=== PATIENT | male | born 1955 | race Caucasian/White ===

== ENCOUNTER → 2016-06-24 | Outpatient (CLI) | payer MEDICAID ==
[2016-06-24 07:28] LABS: CH 32.4; HCT 44.8 % (39.0-53.0); HDW 2.84; HGB 15.4 gm/dL (13.0-17.5); MCHC 34.4 g/dL (31.0-37.0); MCV 92.9 fL (80.0-100.0); Mean Platelet Volume 6.8; RBC 4.83 m/uL (4.30-5.90); RDW 13.3 % (11.5-15.5); WBC 6.7 k/uL (3.8-10.6)
[2016-06-24 07:41] LABS: Appearance,Urine Clear (Clear); Bilirubin,Urine Negative (Negative); Glucose,Urine (UA) Negative (Negative); Ketones,Urine Negative (Negative); Leukocyte Esterase,Urine Negative (Negative); Nitrite,Urine Negative (Negative); PH, Urine 5.5 (5.0-8.0); Protein,Urine Trace (Negative); Specific Gravity,Urine 1.026 (1.001-1.035); UA Billing (MACRO vs. MICRO) CHEM
[2016-06-24 08:09] LABS: Hemoglobin A1C 5.5 % (4.2-6.1)
[2016-06-24 13:41] LABS: ALT 67 U/L (21-72); AST 49 U/L (17-59); Alkaline Phosphatase 61 U/L (38-126); Anion Gap 10 mmol/L; Blood Urea Nitrogen 15 mg/dL (9-20); Calcium 9.5 mg/dL (8.4-10.2); Carbon Dioxide 31 mmol/L (22-30); Chloride 104 mmol/L (98-107); Cholesterol 188 mg/dL (<200); Glucose 98 mg/dL (74-99); HDL Cholesterol 49 mg/dL (40-60); Non-African American GFR(MDRD) >60 (>60 ml/min/1.73 sqM); Potassium 4.6 mmol/L (3.5-5.1); Sodium 145 mmol/L (137-145); Total Bilirubin 2.8 mg/dL (0.2-1.3); Total Protein 7.4 g/dL (6.3-8.2); Triglycerides 71 mg/dL (<150)
[2016-06-24 14:14] LABS: Prostate Specific Antigen 1.74 ng/mL (0.00-4.00)
== END | disposition home or self-care (01) ==
LOC: LABWHC1 06:30
PROVIDERS: ATTEND Internal Medicine
DX: E78.2 Mixed hyperlipidemia (principal); M54.5 Low back pain; M19.90 Unspecified osteoarthritis, unspecified site; K21.0 Gastro-esophageal reflux disease with esophagitis; N40.0 Benign prostatic hyperplasia without lower urinary tract symptoms; R35.0 Frequency of micturition; R73.9 Hyperglycemia, unspecified
CPT/HCPCS: 36415; 80053; 80061; 81003; 82272; 83036; 84153; 84439; 84443; 85027

== ENCOUNTER → 2017-08-22 | Outpatient (CLI) | payer MEDICAID ==
--- NOTE | 2017-08-22 08:25 | XR ---
EXAMINATION TYPE: XR chest 2V DATE OF EXAM: 08/22/2017 COMPARISON: To 916 HISTORY: Chest pain TECHNIQUE: Frontal and lateral views of the chest are obtained. FINDINGS: There is no focal air space opacity. No evidence for pneumothorax. No pleural effusion. The cardiac silhouette size is within normal limits. The osseous structures are grossly intact. IMPRESSION: 1. No acute cardiopulmonary process.
[2017-08-22 08:48] LABS: HCT 44.1 % (39.0-53.0); HGB 15.4 gm/dL (13.0-17.5); MCH 31.7 pg (25.0-35.0); MCHC 34.8 g/dL (31.0-37.0); MCV 91.2 fL (80.0-100.0); Mean Platelet Volume 7.5; Platelet Count 273 k/uL (150-450); RBC 4.84 m/uL (4.30-5.90); WBC 7.4 k/uL (3.8-10.6)
[2017-08-22 09:55] LABS: ALT 43 U/L (21-72); AST 41 U/L (17-59); Albumin 4.2 g/dL (3.5-5.0); Alkaline Phosphatase 51 U/L (38-126); Anion Gap 11 mmol/L; Blood Urea Nitrogen 16 mg/dL (9-20); Calcium 9.3 mg/dL (8.4-10.2); Carbon Dioxide 28 mmol/L (22-30); Chloride 105 mmol/L (98-107); Cholesterol 184 mg/dL (<200); Glucose 101 mg/dL (74-99); HDL Cholesterol 46 mg/dL (40-60); LDL Cholesterol,Calculated 122 mg/dL (0-99); Potassium 4.6 mmol/L (3.5-5.1); Sodium 144 mmol/L (137-145); Total Bilirubin 2.1 mg/dL (0.2-1.3); Total Protein 7.3 g/dL (6.3-8.2); Triglycerides 82 mg/dL (<150)
[2017-08-22 10:11] LABS: T4, Free (Free Thyroxine) 0.95 ng/dL (0.78-2.19)
== END | disposition home or self-care (01) ==
LOC: LABWHC1 08:00
PROVIDERS: ATTEND Internal Medicine
DX: Z00.00 Encounter for general adult medical examination without abnormal findings (principal); E78.2 Mixed hyperlipidemia; M19.90 Unspecified osteoarthritis, unspecified site; K21.0 Gastro-esophageal reflux disease with esophagitis; N40.0 Benign prostatic hyperplasia without lower urinary tract symptoms; R05 Cough
CPT/HCPCS: 36415; 71046; 80053; 80061; 84153; 84439; 84443; 85027

== ENCOUNTER → 2020-06-28 | Outpatient (CLI) | payer MEDICAID ==
--- NOTE | 2020-06-28 16:12 | US ---
EXAMINATION TYPE: US carotid duplex BILAT DATE OF EXAM: 06/28/2020 COMPARISON: NONE CLINICAL HISTORY: 64-year-old male F03.91 Dementia w/behavioral disturbance. TECHNIQUE: Carotid duplex ultrasound examination. Indirect Doppler criteria was utilized. FINDINGS: EXAM MEASUREMENTS: RIGHT: Peak Systolic Velocity (PSV) cm/sec ----- Right CCA: 89.7 ----- Right ICA: 101.8 ----- Right ECA: 148.0 ICA/CCA ratio: 1.1 RIGHT: End Diastole cm/sec ----- Right CCA: 20.4 ----- Right ICA: 34.7 ----- Right ECA: 20.4 LEFT: Peak Systolic Velocity (PSV) cm/sec ----- Left CCA: 98.7 ----- Left ICA: 71.8 ----- Left ECA: 93.6 ICA/CCA ratio: 0.7 LEFT: End Diastole cm/sec ----- Left CCA: 22.4 ----- Left ICA: 26.4 ----- Left ECA: 14.6 VERTEBRALS (direction of flow): Right Vertebral: Antegrade Left Vertebral: Antegrade Rhythm: Normal Tuber Machine Cutter notes: Mild homogeneous plaque with no stenosis seen. IMPRESSION: No hemodynamically significant internal carotid artery stenosis on either side. Criteria for Assigning % of Stenosis / Diameter reduction (Estimation based on the indirect measurements of the internal carotid artery velocities (ICA PSV). 1. Normal (no stenosis)=ICA PSV < 125 cm/s: ratio < 2.0: ICA EDV<40 cm/s. 2. Less than 50% stenosis=ICA PSV < 125 cm/s: ratio < 2.0: ICA EDV<40 cm/s. 3. 50 to 69% stenosis=ICA PSV of 125 to 230 cm/s: ration 2.0 ? 4.0: ICA EDV 40-100 cm/s. 4. Greater than 70% stenosis to near occlusion= ICA PSV > 230 cm/s: ratio > 4.0: ICA EDV > 100 cm/s. 5. Near occlusion= ICA PSV velocities may be low or undetectable: variable ratio and ICA EDV. 6. Total occlusion=unable to detect flow.
== END | disposition home or self-care (01) ==
LOC: RADUSWWP 15:32
PROVIDERS: ATTEND Family Medicine
DX: F03.91 Unspecified dementia, unspecified severity, with behavioral disturbance (principal); Z87.898 Personal history of other specified conditions
CPT/HCPCS: 93880

== ENCOUNTER → 2020-07-09 | Outpatient (CLI) | payer MEDICAID ==
--- NOTE | 2020-07-10 05:36 | CT ---
EXAMINATION TYPE: CT brain w con DATE OF EXAM: 07/09/2020 COMPARISON: None. HISTORY: memory loss CT DLP: 978.2 mGycm Automated exposure control for dose reduction was used. CONTRAST: CT scan of the head is performed with IV Contrast, patient injected with 100 mL of Isovue 300. FINDINGS: There is no abnormal enhancing mass or midline shift identified. The ventricles and sulci are within normal limits in size for patient's age. Donaldson-white matter differentiation fairly well maintained. The globes are intact and the visualized sinuses are clear. IMPRESSION: Unremarkable study.
== END | disposition home or self-care (01) ==
LOC: RADCTMAIN 17:39
PROVIDERS: ATTEND Family Medicine
DX: R41.3 Other amnesia (principal)
CPT/HCPCS: 70460; Q9967

== ENCOUNTER → 2021-03-18 | Outpatient (CLI) | payer MEDICAID ==
--- NOTE | 2021-03-18 13:07 | XR ---
EXAM TYPE: LUMBAR SPINE X RAY SERIES COMPARISON: NONE HISTORY: Pain TECHNIQUE: 4 views are submitted. FINDINGS: Alignment is anatomic. The pedicles are intact. The transverse processes are intact. There is hype rtrophic and degenerative change of the spine. There is facet arthropathy. IMPRESSION: 1. Multilevel degenerative disc disease with hypertrophic arthropathy and foraminal encroachment susp ected at levels L3-S1. Correlate clinically.
== END | disposition home or self-care (01) ==
LOC: RADXRMAIN 12:50
PROVIDERS: ATTEND Nurse Practitioner Family
DX: M51.16 Intervertebral disc disorders with radiculopathy, lumbar region (principal)
CPT/HCPCS: 72100

== ENCOUNTER → 2023-07-06 | Outpatient (CLI) | payer MEDICARE ==
[2023-07-06 20:06] LABS: Basophils # (A) 0.03 X 10*3/uL (0.00-0.10); Basophils % (A) 0.4 %; Eosinophils # (A) 0.07 X 10*3/uL (0.04-0.35); Eosinophils % (A) 0.9 %; HGB 13.7 g/dL (13.0-17.0); Lymphocytes # (A) 2.49 X 10*3/uL (0.90-5.00); Lymphocytes % (A) 30.6 %; MCH 30.6 pg (27.0-32.0); MCHC 34.3 g/dL (32.0-37.0); MCV 89.5 FL (80.0-97.0); Mean Platelet Volume 9.9 FL (9.5-12.2); Monocytes # (A) 0.64 X 10*3/uL (0.20-1.00); Monocytes % (A) 7.9 %; NRBC Per 100 WBC 0 X 10*3/uL (0.00-0.01); Neutrophils # (A) 4.88 X 10*3/uL (1.80-7.70); Platelet Count 317 X 10*3/uL (140-440); RBC 4.47 X 10*6/uL (4.40-5.60); RDW 12.9 % (11.5-14.5); WBC 8.13 X 10*3/uL (4.50-10.00)
[2023-07-06 21:26] LABS: Potassium 3.6 mmol/L (3.5-5.5)
== END | disposition home or self-care (01) ==
LOC: LABPAT 14:09
PROVIDERS: ATTEND Surgery
DX: Z01.818 Encounter for other preprocedural examination (principal); N32.1 Vesicointestinal fistula; R00.1 Bradycardia, unspecified
CPT/HCPCS: 80051; 85025; 93005

== ENCOUNTER 2023-07-16 09:22 | Day surgery (SDC) | payer MEDICARE ==
[2023-07-16] MEDS: LACTATED RINGERS 1,000 ML IV SCH (10:27)
[2023-07-16] MEDS ORDERED: PROPOFOL 10 MG/ML 20 ML VIAL IV ONE (10:41)
[2023-07-16] MEDS ORDERED: LIDOCAINE 1% INJ 10MG/ML (20 ML MDV) ONE (10:41)
--- NOTE | 2023-07-16 10:55 | P.OP ---
Date of Procedure: 07/16/23 Preoperative Diagnosis: colovesical fistula Diverticulitis Postoperative Diagnosis: colovesical fistula Diverticulosis Procedure(s) Performed: colonoscopy Anesthesia: MAC Surgeon: Darinel Richard Pathology: none sent Condition: stable Disposition: PACU Description of Procedure: the patient's placed on the endoscopy table in the lateral position. He received IV sedation. The digital rectal exam was performed which revealed no abnormalities. The flexible colonoscope was then placed the patient's anus and passed throughout the entire colon. The ileocecal valve was visualized. The cecum appeared normal. The ascending colon appeared normal. The transverse colon appeared normal. In the descending and sigmoid colon there is extensive diverticular changes. There appeared to be some evidence of scarring of the sigmoid colon. Scope was then brought back the rectum and this appeared normal. Scope was withdrawn for patient.
[2023-07-16 10:58] VITALS: TEMP 97.5
[2023-07-16 11:43] VITALS: BP 142/81; PULSE 51; RESP 18
== END 2023-07-16 11:45 | disposition home or self-care (01) ==
LOC: ORWHC2ENDO 09:22
PROVIDERS: ATTEND Surgery
DX: N32.1 Vesicointestinal fistula (principal); K57.30 Diverticulosis of large intestine without perforation or abscess without bleeding; E78.5 Hyperlipidemia, unspecified; Z79.899 Other long term (current) drug therapy
CPT/HCPCS: 45378; J2001; J2704

== ENCOUNTER 2023-07-17 06:11 | Inpatient (IN) | payer MEDICARE ==
[2023-07-16 09:26] VITALS: BMI 30.7
[2023-07-17] MEDS ORDERED: HYDROmorphone 0.5 MG/0.5 ML SYRINGE IVP PRN (07:00)
[2023-07-17] MEDS: LACTATED RINGERS 1,000 ML IV SCH (07:25)
[2023-07-17] MEDS: LIDOCAINE 1% (10MG/ML) FOR IV START INTRADERMA PRN (07:25)
[2023-07-17] MEDS: ACETAMINOPHEN TAB 500 MG TAB PO PRN (07:31)
[2023-07-17] MEDS: DEXAMETHASONE SOD PHOSPHATE 4 MG/ML 1 ML VIAL IV ONE (07:32)
[2023-07-17] MEDS: ONDANSETRON 4 MG/2 ML VIAL IVP ONE (07:33)
[2023-07-17] MEDS: MIDAZOLAM 2 MG/2 ML VIAL IV PRN (08:02)
[2023-07-17] MEDS ORDERED: ePHEDrine 50 MG/ML 1 ML VIAL ONE (08:26)
[2023-07-17] MEDS ORDERED: LIDOCAINE 1% INJ 10MG/ML (20 ML MDV) ONE (08:26)
[2023-07-17] MEDS ORDERED: fentaNYL (PF) 50 MCG/ML 2 ML AMP ONE (08:26)
[2023-07-17] MEDS ORDERED: WATER FOR INJECTION, STERILE 10 ML VIAL IV ONE (08:26)
[2023-07-17] MEDS ORDERED: SUCCINYLCHOLINE CHLORIDE 200 MG/10 ML VIAL IV ONE (08:26)
[2023-07-17] MEDS ORDERED: SUGAMMADEX SODIUM 200 MG/2 ML SDV IV ONE (08:26)
[2023-07-17] MEDS ORDERED: PHENYLEPHRINE 10 MG/ML VIAL ONE (08:26)
[2023-07-17] MEDS ORDERED: HEPARIN SODIUM,PORCINE 5,000 UNIT/ML 1 ML VIAL ONE (08:26)
[2023-07-17] MEDS ORDERED: ROCURONIUM 10 MG/ML (5 ML VIAL) IV ONE (08:26)
[2023-07-17] MEDS ORDERED: PROPOFOL 10 MG/ML 20 ML VIAL IV ONE (08:26)
[2023-07-17] MEDS: metroNIDAZOLE-NS PMX 500 MG in SALINE 1 100ML.BAG IVPB PRN (08:50)
--- NOTE | 2023-07-17 09:22 | P.ANPRN ---
Procedure Note - Anesthesia - Epidural/Spinal Epidural Continuous Time Out Performed: Yes Date of Procedure: 07/17/23 Procedure Start Time: 08:04 Procedure Stop Time: 08:20 Location of Patient: PreOp Indication: Acute Post-Operative Pain, Requested by Surgeon Sedation Type: Sedate with meaningful contact maintained Preparation: Sterile Dressing Position: Sitting Catheter: Indwelling Needle Guage: 18 Injectate: lidocaine 1% w/ epi 5 ml Narrative: T10 level prepped and draped. 1% lidocaine 3 ml for local. 18 G Touhey to JAQUELINE to NaCl. Catheter to 14 cm. Negative aspiration. Negative test dose. Patient tolerated well Blood Aspirated: No Pain Paresthesia on Injection Noted: No Events: Uneventful and Well Tolerated
[2023-07-17] MEDS ORDERED: NALOXONE 0.4 MG/ML 1 ML VIAL IV PRN (09:23)
[2023-07-17] MEDS ORDERED: NALBUPHINE 10 MG/ML (10 ML MDV) IV PRN (09:23)
[2023-07-17] MEDS: LACTATED RINGERS 1,000 ML IV ONE ×2 (09:33→12:59)
[2023-07-17] MEDS: HEPARIN SODIUM,PORCINE 5,000 UNIT/ML 1 ML VIAL SQ PRN (10:03)
[2023-07-17] MEDS ORDERED: METOCLOPRAMIDE 5 MG/ML 2 ML VIAL IVP PRN (10:51)
[2023-07-17] MEDS ORDERED: BENZOCAINE/MENTHOL LOZENG 1 EACH LOZENGE MUCOUS MEM PRN (10:51)
--- NOTE | 2023-07-17 10:51 | P.OP ---
Date of Procedure: 07/17/23 Preoperative Diagnosis: diverticulitis with colovesical fistula Postoperative Diagnosis: severe diverticulitis with colovesical fistula Procedure(s) Performed: sigmoid colectomy with low anterior section Takedown of splenic flexure Repair of colovesical fistula Anesthesia: ANDREW Surgeon: Darinel Richard Estimated Blood Loss (ml): 100 Pathology: other (sigmoid colon) Condition: stable Disposition: PACU Description of Procedure: the patient's placed on the operating table in the supine position. He received general endotracheal tube anesthesia. His abdomen was prepped and draped in usual sterile fashion. The patient placed in dorsal 5 position. A low midline skin incision was made then using left cautery the subcutaneous tissue divided. And the abdominal wall was divided in the midline position. The Bookwalter retractors placed in the wound. And then the abdomen was explored. There was obvious severe diverticulitis of the sigmoid colon. The colon appeared to be chronically scarred and inflamed. It was adherent to the left lateral area of the bladder. This point the incision was extended cephalad. And then the left colon and splenic flexure were mobilized. He sigmoid colon was adherent to the bladder this was bluntly dissected with finger dissection. Using electrocautery the bladder was further dissected off the lateral pelvic wall. The bladder was dissected off the;. The colovesical fistula could be seen. It was approximately 7 mm in size. The bladder was repaired using 3-0 chromic suture. At this point the rectum was freed. The rectum was then transected with the contour stapler. Next. The suitable spot on the left colon was found. And then a enterotomy is made just distally to this. The anvil for the 29 mm EEA stapler is placed into the colon. The colon was then transected with the JOSY stapler. And then the anvil spike was driven through the staple line. The enterotomy was closed with 3-0 GI silk suture. This was in the specimen side. The mesentery the bowel was divided with the LigaSure device. The specimen sent to pathology. Due to the significant inflammatory changes in the left pelvis. The ureter could not be identified 100%. There appeared to be no evidence of any transection of ureter during the dissection. At this point the dietetic assistant placed the anal dilators in the anus. And then the 29 mm EEA stapler was placed into the anus. The spike was driven through the rectal staple line. The anvil was cut to stable. The stapler is then closed and fired. 2 intact donut tissue rings were removed from the stapler. Using a bowel clamp the proximal bowel was occluded and then using the rigid sigmoidoscope the rectum was insufflated with air. There is no evidence of any leakage of air at the staple line. His was tested under water. There is enough air placed in the rectum where the air escaped around the anus. At this point the abdomen was irrigated there is no bleeding seen. A drain was placed in the pelvis. This was brought through the right abdominal wall. The fascia was then closed in looped #1 PDS suture. Skin was closed neal.Prevena Closed skin neal. Patient was sent to recovery room stable condition.
[2023-07-17] MEDS: ROPIVACAINE 400 MG, HYDROMORPHONE (PF) 5 MG in SODIUM CHLORIDE 0.9% 170 ML EPIDURAL PRN (11:57)
[2023-07-17] MEDS: D5-0.45% NACL WITH KCL 20MEQ/L 1,000 ML IV SCH (14:23)
[2023-07-17 14:39] LABS: Glucose,Whole Blood 162 mg/dL (70-110)
[2023-07-17 15:54] LABS: African American GFR (CKD) >90 (>60 ml/min/1.73 sqM); Anion Gap 5 mmol/L; Blood Urea Nitrogen 9 mg/dL (9-20); Calcium 8.3 mg/dL (8.4-10.2); Carbon Dioxide 28 mmol/L (22-30); Chloride 105 mmol/L (98-107); Glucose 203 mg/dL (74-99); Non-African American GFR(CKD) >90 (>60 ml/min/1.73 sqM); Potassium 3.4 mmol/L (3.5-5.1); Sodium 138 mmol/L (137-145)
[2023-07-17 16:08] LABS: Basophils % (A) 0 %; Eosinophils % (A) 0 %; HCT 42.3 % (39.0-53.0); Lymphocytes # (A) 0.6 k/uL (1.0-4.8); Lymphocytes % (A) 4 %; MCH 31.2 pg (25.0-35.0); MCHC 33.1 g/dL (31.0-37.0); MCV 94.2 fL (80.0-100.0); Mean Platelet Volume 8.1; Monocytes % (A) 7 %; Neutrophils # (A) 12.5 k/uL (1.3-7.7); Neutrophils % (A) 88 %; Platelet Count 278 k/uL (150-450); RBC 4.49 m/uL (4.30-5.90); WBC 14.2 k/uL (3.8-10.6)
[2023-07-17] MEDS: HEPARIN SODIUM,PORCINE 5,000 UNIT/ML 1 ML VIAL SQ SCH (17:09)
[2023-07-17] MEDS: FAMOTIDINE 20 MG/2 ML VIAL IV SCH (22:43)
[2023-07-17] MEDS: ALVIMOPAN 12 MG CAPSULE PO SCH (22:57)
[2023-07-17] MEDS: DONEPEZIL 10 MG TAB PO SCH (22:57)
[2023-07-17] MEDS: MEMANTINE 10 MG TAB PO SCH (22:57)
[2023-07-18] MEDS: ONDANSETRON 4 MG/2 ML VIAL IVP PRN (09:41)
--- NOTE | 2023-07-18 10:47 | P.GSCN ---
History of Present Illness Consult date: 07/18/23 History of present illness: 67 yo male with diverticultis and a colovesical fistula underwent a sigmoid colectomy yesterday by Dr Richard. Dr Flores was asked to see as he diagnosed the fistual because of chronic utis and an abnormal cysto consistent with a cv fistual THe patient has an indwelling catheter in place.The patient can give no other history Review of Systems ROS unobtainable: due to mental status - EENT Eyes: denies blurred vision Ears, nose, mouth and throat: Denies dysphagia - Cardiovascular Denies chest pain, Denies shortness of breath - Respiratory Denies cough, Denies 7 - Gastrointestinal Reports as per HPI - Genitourinary Denies dysuria, Denies hematuria - Integumentary Denies rash, Denies unusual bruising - Neurological Denies headaches, Denies syncope - Hematologic/Lymphatic Denies easy bleeding, Denies easy bruising Past Medical History Past Medical History: Hyperlipidemia Additional Past Medical History / Comment(s): "takes memory pills" - pt. states memory problems History of Any Multi-Drug Resistant Organisms: None Reported Past Surgical History: Unable to Obtain Additional Past Surgical History / Comment(s): Pt. doesn't think he's had surgery before. Past Anesthesia/Blood Transfusion Reactions: Unable to Obtain Additional Past Anesthesia/Blood Transfusion Reaction / Comm: pt. doesn't think he has had surgery Past Psychological History: No Psychological Hx Reported Smoking Status: Former smoker Past Alcohol Use History: None Reported Additional Past Alcohol Use History / Comment(s): quit smoking 20yrs. ago, smoked "socially". quit drinking approx. 20 yrs. ago when he "ended up in [facility] for [facility]" Past Drug Use History: None Reported Medications and Allergies Home Medications Medication Instructions Recorded Confirmed Type Atorvastatin [Lipitor] 20 mg PO QAM 07/15/23 07/17/23 History Donepezil [Aricept] 2 tab PO HS 07/15/23 07/17/23 History Memantine [Namenda] 10 mg PO BID 07/15/23 07/17/23 History Allergies Allergy/AdvReac Type Severity Reaction Status Date / Time No Known Allergies Allergy Verified 07/17/23 07:10 Surgical - Exam Vital Signs Temp Pulse Resp BP Pulse Ox 97.6 F 52 L 18 132/85 99 07/17/23 07:01 07/17/23 07:01 07/17/23 07:01 07/17/23 07:01 07/17/23 07:01 - General well developed, well nourished, no distress - Eyes normal ocular movement, no icteric - ENT no hearing loss, no congestion - Neck no masses, trachea midline - Respiratory normal respiratory effort, clear to auscultation - Abdomen Abdomen: soft, non tender, no guarding, no rigid, no rebound - Integumentary no rash, no abnormal pigmentation - Neurologic no disoriented, no combative, memory loss Results - Labs 07/17/23 15:03 07/17/23 15:03 Abnormal Lab Results - Last 24 Hours (Table) 07/17/23 07/17/23 07/17/23 Range/Units 14:38 15:03 15:03 WBC 14.2 H (3.8-10.6) k/uL Neutrophils # 12.5 H (1.3-7.7) k/uL Lymphocytes # 0.6 L (1.0-4.8) k/uL Potassium 3.4 L (3.5-5.1) mmol/L Glucose 203 H (74-99) mg/dL POC Glucose (mg/dL) 162 H (70-110) mg/dL Calcium 8.3 L (8.4-10.2) mg/dL Diabetes panel 07/17/23 Range/Units 15:03 Sodium 138 (137-145) mmol/L Potassium 3.4 L (3.5-5.1) mmol/L Chloride 105 (98-107) mmol/L Carbon Dioxide 28 (22-30) mmol/L BUN 9 (9-20) mg/dL Creatinine 0.72 (0.66-1.25) mg/dL Glucose 203 H (74-99) mg/dL Calcium 8.3 L (8.4-10.2) mg/dL Calcium panel 07/17/23 Range/Units 15:03 Calcium 8.3 L (8.4-10.2) mg/dL Pituitary panel 07/17/23 Range/Units 15:03 Sodium 138 (137-145) mmol/L Potassium 3.4 L (3.5-5.1) mmol/L Chloride 105 (98-107) mmol/L Carbon Dioxide 28 (22-30) mmol/L BUN 9 (9-20) mg/dL Creatinine 0.72 (0.66-1.25) mg/dL Glucose 203 H (74-99) mg/dL Calcium 8.3 L (8.4-10.2) mg/dL Adrenal panel 07/17/23 Range/Units 15:03 Sodium 138 (137-145) mmol/L Potassium 3.4 L (3.5-5.1) mmol/L Chloride 105 (98-107) mmol/L Carbon Dioxide 28 (22-30) mmol/L BUN 9 (9-20) mg/dL Creatinine 0.72 (0.66-1.25) mg/dL Glucose 203 H (74-99) mg/dL Calcium 8.3 L (8.4-10.2) mg/dL Assessment and Plan Assessment: Impression: colovesical fistual treated with a colectomy. Plan: The patients catheter should remain in place 10 day to 2 weeks . The bladder shold heal with this He can fu in our office with Dr Flores for a voiding trial
--- NOTE | 2023-07-18 11:41 | P.CONS ---
History of Present Illness - Reason for Consult Consult date: 07/18/23 Medical management of dementia - History of Present Illness Is a 67-year-old male known to the practice. He has a history of dementia and hyperlipidemia which he takes amantadine, donezepil atorvastatin for. His sister reports that he was having recurrent UTIs and then peeing brown liquid. It was found that he had a colovesiculal fistula. He underwent a sigmoid colectomy with low anterior resection [address] Richard. He was seen in the surgical floor. He is complaining of some itching at his incision site and some sweating. His sister at bedside. He has remained afebrile. Heart rate respiratory rate controlled, labs from yesterday show a slight leukocytosis of 14.2 with a left shift electrolytes are otherwise normal with exception of a potassium 3.4. Repeat labs are pending for today. The oma ent is somewhat confused but conversant and following instructions. Review of Systems All systems: negative Past Medical History Past Medical History: Hyperlipidemia Additional Past Medical History / Comment(s): "takes memory pills" - pt. states memory problems History of Any Multi-Drug Resistant Organisms: None Reported Past Surgical History: Unable to Obtain Additional Past Surgical History / Comment(s): Pt. doesn't think he's had surgery before. Past Anesthesia/Blood Transfusion Reactions: Unable to Obtain Additional Past Anesthesia/Blood Transfusion Reaction / Comm: pt. doesn't think he has had surgery Past Psychological History: No Psychological Hx Reported Smoking Status: Former smoker Past Alcohol Use History: None Reported Additional Past Alcohol Use History / Comment(s): quit smoking 20yrs. ago, smoked "socially". quit drinking approx. 20 yrs. ago when he "ended up in [facility]" Past Drug Use History: None Reported Medications and Allergies Home Medications Medication Instructions Recorded Confirmed Type Atorvastatin [Lipitor] 20 mg PO QAM 07/15/23 07/17/23 History Donepezil [Aricept] 2 tab PO HS 07/15/23 07/17/23 History Memantine [Namenda] 10 mg PO BID 07/15/23 07/17/23 History Allergies Allergy/AdvReac Type Severity Reaction Status Date / Time No Known Allergies Allergy Verified 07/17/23 07:10 Physical Exam Vitals: Vital Signs Temp Pulse Pulse Resp BP Pulse Ox 07/18/23 07:35 97.4 F L 60 17 187/97 96 07/18/23 02:40 150/72 07/18/23 02:39 98.6 F 67 20 191/94 94 L 07/17/23 20:00 55 L 07/17/23 19:40 98.6 F 55 L 20 152/83 100 07/17/23 14:45 50 L 110/68 98 07/17/23 14:15 56 L 112/68 97 07/17/23 13:55 53 L 113/69 97 07/17/23 13:40 51 L 118/51 100 07/17/23 13:25 98.2 F 43 L 14 106/61 100 07/17/23 12:30 48 L 17 107/55 97 07/17/23 12:14 45 L 17 95/55 97 07/17/23 12:00 49 L 19 92/50 97 07/17/23 11:45 48 L 16 99/58 99 Intake and Output 07/17/23 07/18/23 07/18/23 22:59 06:59 14:59 Intake Total 1000 480 Output Total 100 755 75 Balance 900 -275 -75 Intake: Intake, IV Titration 1000 Amount D5-0.45% NaCl with KCl 1000 20Meq/l 1,000 ml @ 125 mls/hr IV .Q8H [facility] Rx#: [id number] Oral 0 480 Output: Drainage 100 55 75 Abdomen 100 55 75 Urine 700 Other: Voiding Method Indwelling Catheter GENERAL: Fatigued elderly male with some ongoing sweating. HEAD: Atraumatic, normocephalic. EYES: Pupils equal round and reactive to light, extraocular movements intact, sclera anicteric, conjunctiva are normal. ENT:nares patent, oropharynx clear without exudates. Moist mucous membranes. NECK: Normal range of motion, supple without lymphadenopathy or JVD, no thyromegaly LUNGS: Breath sounds clear to auscultation bilaterally and equal. No wheezes rales or rhonchi. HEART: Regular rate and rhythm without murmurs, rubs or gallops.S1S2 Normal ABDOMEN: Wound VAC appears to be in place. Abdominal binder is in place, furthe r evaluation was deferred. Scant bowel sounds are pending at this time. EXTREMITIES: Normal range of motion, no pitting or edema. No clubbing or cyanosis. NEUROLOGICAL: Cranial nerves II through XII grossly intact. Normal speech, patient appears somewhat confused which is his baseline per sister. PSYCH: Normal mood, normal affect. SKIN: Warm, Dry, normal turgor, no rashes or lesions noted. Results CBC & Chem 7: 07/17/23 15:03 07/17/23 15:03 Labs: Abnormal Lab Results - Last 24 Hours (Table) 07/17/23 07/17/23 07/17/23 Range/Units 14:38 15:03 15:03 WBC 14.2 H (3.8-10.6) k/uL Neutrophils # 12.5 H (1.3-7.7) k/uL Lymphocytes # 0.6 L (1.0-4.8) k/uL Potassium 3.4 L (3.5-5.1) mmol/L Glucose 203 H (74-99) mg/dL POC Glucose (mg/dL) 162 H (70-110) mg/dL Calcium 8.3 L (8.4-10.2) mg/dL Assessment and Plan Plan: Colovesiclulal fistula status post partial colectomy: Postop day #1, patient is not currently on any antibiotics. He has medications for nausea and pain. He is on heparin for anticoagulation DVT prophylaxis. He has famotidine for GI prophylaxis Dementia: Remains on donezepil and amantadine. Hyperlipidemia. His Lipitor can be safely held at this time. Urology has been consulted as well, medically appears stable at this time. Will continue to follow him with you, thank you for much of his consultation, repeat labs in AM.
[2023-07-18 13:18] LABS: Glucose,Whole Blood 137 mg/dL (70-110)
[2023-07-18] MEDS: diphenhydrAMINE 50 MG/ML 1 ML VIAL IVP PRN (16:52)
--- NOTE | 2023-07-18 17:14 | P.PN ---
Subjective Progress Note Date: 07/18/23 Nursing reports that patient became agitated and ripped out his epidural including Moisés-Obrien drain. Family also confirms he is more confused. Abdomen: Incisional wound VAC without suction. Attempted reinforcement was still persistently. Psych: Patient is confused. Genitourinary: Urine is dark. No hematuria. Plan: 1. Attached incisional wound VAC to wall suction medium, continuous suction 2. Agree with Haldol per medicine to adjust for agitation. Restraints per medicine team. 3. May discontinue antiemetics for prolonged QT interval and interaction with Haldol. 4. Abdominal binder ordered. 5. Transition to nonnarcotic pain medication scheduled. I prescribed Tylenol and Toradol. 6. Keep Lema catheter in for bladder repair. Objective - Vital Signs Vital signs: Vital Signs Temp 98.3 F 07/18/23 13:55 Pulse 85 07/18/23 15:50 Resp 18 07/18/23 13:55 BP 212/113 07/18/23 15:50 Pulse Ox 94 L 07/18/23 15:50 FiO2 Intake & Output 07/17/23 07/18/23 07/18/23 18:59 06:59 18:59 Intake Total 3150 480 47 Output Total 540 795 95 Balance 2610 -315 -48 Weight 85.8 kg Intake: IV 2150 Intake, IV Titration 1000 47 Amount D5-0.45% NaCl with KCl 1000 20Meq/l 1,000 ml @ 125 mls/hr IV .Q8H [facility] Rx#: [id number] Ropivacaine 400 mg 47 Hydromorphone (Pf) 5 mg In Sodium Chloride 0.9% 170 ml @ Per Protocol EPIDURAL .Q0M PRN Rx#: [id number] Oral 0 480 Output: Drainage 140 95 95 Abdomen 140 95 95 Urine 300 700 Estimated Blood Loss 100 Other: Voiding Method Indwelling Catheter - Labs CBC & Chem 7: 07/17/23 15:03 07/17/23 15:03 Labs: Abnormal Lab Results - Last 24 Hours (Table) 07/18/23 Range/Units 13:14 POC Glucose (mg/dL) 137 H (70-110) mg/dL
[2023-07-18] MEDS: KETOROLAC 15 MG/ML 1 ML VIAL IVP SCH (17:49)
[2023-07-18] MEDS: ACETAMINOPHEN IV (For NPO) 1,000 MG in EMPTY BAG 1 BAG IVPB SCH (17:50)
[2023-07-18] MEDS: HALOPERIDOL LACTATE 5 MG/ML 1 ML VIAL IM STA (19:54)
[2023-07-19] MEDS: HALOPERIDOL LACTATE 5 MG/ML 1 ML VIAL IM PRN (02:37)
[2023-07-19 09:54] LABS: Basophils # (A) 0.03 X 10*3/uL (0.00-0.10); Basophils % (A) 0.2 %; Eosinophils # (A) 0 X 10*3/uL (0.04-0.35); Eosinophils % (A) 0 %; HCT 33.7 % (39.6-50.0); Lymphocytes % (A) 12.6 %; MCHC 35.6 g/dL (32.0-37.0); MCV 89.9 FL (80.0-97.0); Mean Platelet Volume 10.5 FL (9.5-12.2); Monocytes % (A) 7.7 %; NRBC Per 100 WBC 0 X 10*3/uL (0.00-0.01); Neutrophils # (A) 14.35 X 10*3/uL (1.80-7.70); Neutrophils % (A) 78.9 %; Platelet Count 250 X 10*3/uL (140-440); RBC 3.75 X 10*6/uL (4.40-5.60); RDW 13.2 % (11.5-14.5); WBC 18.19 X 10*3/uL (4.50-10.00)
[2023-07-19 09:56] LABS: ALT 28 U/L (10-49); AST 57 U/L (14-35); Albumin 3.4 g/dL (3.8-4.9); Albumin/Globulin Ratio 1.55 Ratio (1.60-3.17); Alkaline Phosphatase 55 U/L (41-126); BUN/Creat Ratio 14.55 Ratio (12.00-20.00); Calcium 8.6 mg/dL (8.7-10.3); Carbon Dioxide 25.9 mmol/L (21.6-31.8); Chloride 106 mmol/L (96-109); Globulin 2.2 g/dL (1.6-3.3); Glucose 86 mg/dL (70-110); Potassium 3.8 mmol/L (3.5-5.5); Sodium 142 mmol/L (135-145); Total Bilirubin 1.3 mg/dL (0.3-1.2); Total Protein 5.6 g/dL (6.2-8.2)
--- NOTE | 2023-07-19 12:11 | P.PN ---
Subjective Progress Note Date: 07/19/23 07/18/23: this is a 67-year-old male known to the practice. He has a history of dementia and hyperlipidemia which he takes amantadine, donezepil atorvastatin for. His sister reports that he was having recurrent UTIs and then peeing brown liquid. It was found that he had a colovesiculal fistula. He underwent a sigmoid colectomy with low anterior resection [address] Richard. He was seen in the surgical floor. He is complaining of some itching at his incision site and some sweating. His sister at bedside. He has remained afebrile. Heart rate respiratory rate controlled, labs from yesterday show a slight leukocytosis of 14.2 with a left shift electrolytes are otherwise normal with exception of a potassium 3.4. Repeat labs are pending for today. The patient is somewhat confused but conversant and following instructions. July 19, 2023: Patient was reevaluated today. Yesterday became aggressive and Haldol was ordered IM. His Reglan was discontinued to prevent any QT prolongat ion. This morning he has a sitter at bedside. He has known dementia and takes Aricept and Namenda. He is asleep but easily arousable at this time. Not really answering questions at this time. Show patient is afebrile, heart rates to normal once his respiratory blood pressure slightly elevated. Pulse oximetry this morning was 96% on room air. Labs show a leukocytosis now 18.19 with a hemoglobin of 12.0 with neutrophil count is 14.35 chemistries are essentially normal. EKG yesterday showed sinus rhythm with PACs Objective - Vital Signs Vital signs: Vital Signs Temp 98.7 F 07/19/23 07:12 Pulse 63 07/19/23 07:12 Resp 17 07/19/23 07:12 BP 152/85 07/19/23 07:12 Pulse Ox 96 07/19/23 07:12 FiO2 Intake & Output 07/18/23 07/19/23 07/19/23 18:59 06:59 18:59 Intake Total 397 220 Output Total 625 350 Balance -228 -130 Intake: Intake, IV Titration 397 Amount ACETAMINOPHEN IV (For NPO 100 ) 1,000 mg In Empty Bag 1 bag @ 400 mls/hr IVPB Q6HR [facility] Rx#:[id number] D5-0.45% NaCl with KCl 250 20Meq/l 1,000 ml @ 125 mls/hr IV .Q8H [facility] Rx#: [id number] Ropivacaine 400 mg 47 Hydromorphone (Pf) 5 mg In Sodium Chloride 0.9% 170 ml @ Per Protocol EPIDURAL .Q0M PRN Rx#: [id number] Oral 0 220 Output: Drainage 95 Abdomen 95 Urine 530 350 Stool 0 Other: Voiding Method Indwelling Catheter Indwelling Catheter # Bowel Movements 0 - Exam GENERAL: Asleep elderly male. Is easily arousable but seems startled. NECK: Normal range of motion, supple without lymphadenopathy or JVD, no thyromegaly LUNGS: Breath sounds clear to auscultation bilaterally and equal. No wheezes rales or rhonchi. HEART: Regular rate and rhythm without murmurs, rubs or gallops.S1S2 Normal ABDOMEN: Wound VAC appears to be in place. Abdominal binder is in place, further evaluation was deferred. Hypoactive bowel sounds are pending at this time. EXTREMITIES: Normal range of motion, no pitting or edema. No clubbing or cyanosis. NEUROLOGICAL: Cranial nerves II through XII grossly intact. No speech audible this morning. PSYCH: Normal mood, normal affect. SKIN: Warm, Dry, normal turgor, no rashes or lesions noted. - Labs CBC & Chem 7: 07/19/23 05:49 07/19/23 05:49 Labs: Abnormal Lab Results - Last 24 Hours (Table) 07/18/23 07/19/23 07/19/23 Range/Units 13:14 05:49 05:49 WBC 18.19 H (4.50-10.00) X 10*3/uL RBC 3.75 L (4.40-5.60) X 10*6/uL Hgb 12.0 L (13.0-17.0) g/dL Hct 33.7 L (39.6-50.0) % Immature Gran # 0.11 H (0.00-0.04) X 10*3/uL Neutrophils # 14.35 H (1.80-7.70) X 10*3/uL Monocytes # 1.40 H (0.20-1.00) X 10*3/uL Eosinophils # 0 L (0.04-0.35) X 10*3/uL POC Glucose (mg/dL) 137 H (70-110) mg/dL Calcium 8.6 L (8.7-10.3) mg/dL Total Bilirubin 1.3 H (0.3-1.2) mg/dL AST 57 H (14-35) U/L Total Protein 5.6 L (6.2-8.2) g/dL Albumin 3.4 L (3.8-4.9) g/dL Albumin/Globulin Ratio 1.55 L (1.60-3.17) Ratio Assessment and Plan Plan: Colovesiclulal fistula status post partial colectomy: Postop day #2, patient is not currently on any antibiotics. He has medications for nausea and pain. He is on heparin for anticoagulation DVT prophylaxis. He has famotidine for GI prophylaxis Dementia: Remains on donezepil and amantadine. Aggressive outburst: Haldol is ordered as needed. Hyperlipidemia. His Lipitor can be safely held at this time. Reactive leukocytosis: He did receive cefazolin today in the operating room. Will continue to monitor status he may need to be restarted on antibiotics. Will continue to follow with you. He will be reevaluated next 24 hours. Continue his current medications regimen.
--- NOTE | 2023-07-19 12:45 | P.PN ---
Subjective Progress Note Date: 07/19/23 patient appears to be resting comfortably in his bed. His postoperative pain has been managed. He has really no complaints. Patient has been diffuse. He's had good urinary output. However his white count has jumped. There is no obvious signs of sepsis. On exam vital signs appear stable. Abdomen is soft incision is clean dry intact. DACIA drain has serosanguineous fluid. Status post status post low anterior section with repair of colovesical fistula. Patient will be observed. We will start him on Zosyn today. Objective - Vital Signs Vital signs: Vital Signs Temp 98.7 F 07/19/23 07:12 Pulse 63 07/19/23 07:12 Resp 17 07/19/23 07:12 BP 152/85 07/19/23 07:12 Pulse Ox 96 07/19/23 07:12 FiO2 Intake & Output 07/18/23 07/19/23 07/19/23 18:59 06:59 18:59 Intake Total 397 220 Output Total 625 350 Balance -228 -130 Intake: Intake, IV Titration 397 Amount ACETAMINOPHEN IV (For NPO 100 ) 1,000 mg In Empty Bag 1 bag @ 400 mls/hr IVPB Q6HR ERIN Rx#:[id number] D5-0.45% NaCl with KCl 250 20Meq/l 1,000 ml @ 125 mls/hr IV .Q8H ERIN Rx#: [id number] Ropivacaine 400 mg 47 Hydromorphone (Pf) 5 mg In Sodium Chloride 0.9% 170 ml @ Per Protocol EPIDURAL .Q0M PRN Rx#: [id number] Oral 0 220 Output: Drainage 95 Abdomen 95 Urine 530 350 Stool 0 Other: Voiding Method Indwelling Catheter Indwelling Catheter # Bowel Movements 0 - Labs CBC & Chem 7: 07/19/23 05:49 07/19/23 05:49 Labs: Abnormal Lab Results - Last 24 Hours (Table) 07/18/23 07/19/23 07/19/23 Range/Units 13:14 05:49 05:49 WBC 18.19 H (4.50-10.00) X 10*3/uL RBC 3.75 L (4.40-5.60) X 10*6/uL Hgb 12.0 L (13.0-17.0) g/dL Hct 33.7 L (39.6-50.0) % Immature Gran # 0.11 H (0.00-0.04) X 10*3/uL Neutrophils # 14.35 H (1.80-7.70) X 10*3/uL Monocytes # 1.40 H (0.20-1.00) X 10*3/uL Eosinophils # 0 L (0.04-0.35) X 10*3/uL POC Glucose (mg/dL) 137 H (70-110) mg/dL Calcium 8.6 L (8.7-10.3) mg/dL Total Bilirubin 1.3 H (0.3-1.2) mg/dL AST 57 H (14-35) U/L Total Protein 5.6 L (6.2-8.2) g/dL Albumin 3.4 L (3.8-4.9) g/dL Albumin/Globulin Ratio 1.55 L (1.60-3.17) Ratio
[2023-07-19] MEDS: PIPERACILLIN-TAZOBACTAM 3.375 GM in SODIUM CHLORIDE 0.9% 100 ML IVPB SCH (17:36)
[2023-07-20] MEDS: LORazepam 2 MG/ML INJ IV PRN (02:17)
[2023-07-20] MEDS: ONDANSETRON 4 MG/2 ML VIAL IVP PRN (09:21)
[2023-07-20 10:02] LABS: Basophils % (A) 0 %; Eosinophils # (A) 0.1 k/uL (0-0.7); Eosinophils % (A) 1 %; HCT 37.6 % (39.0-53.0); HGB 12.8 gm/dL (13.0-17.5); Lymphocytes # (A) 1.1 k/uL (1.0-4.8); Lymphocytes % (A) 9 %; MCH 31.2 pg (25.0-35.0); MCHC 34.1 g/dL (31.0-37.0); MCV 91.3 fL (80.0-100.0); Mean Platelet Volume 8.3; Monocytes # (A) 0.6 k/uL (0-1.0); Monocytes % (A) 5 %; Neutrophils # (A) 9.8 k/uL (1.3-7.7); Neutrophils % (A) 84 %; Platelet Count 261 k/uL (150-450); RBC 4.11 m/uL (4.30-5.90); RDW 13.5 % (11.5-15.5); WBC 11.6 k/uL (3.8-10.6)
[2023-07-20 10:15] LABS: African American GFR (CKD) >90 (>60 ml/min/1.73 sqM); Anion Gap 5 mmol/L; Blood Urea Nitrogen 12 mg/dL (9-20); Calcium 8.1 mg/dL (8.4-10.2); Carbon Dioxide 27 mmol/L (22-30); Chloride 107 mmol/L (98-107); Glucose 112 mg/dL (74-99); Non-African American GFR(CKD) >90 (>60 ml/min/1.73 sqM); Potassium 3.9 mmol/L (3.5-5.1); Sodium 139 mmol/L (137-145)
--- NOTE | 2023-07-20 12:50 | P.PN ---
Subjective Progress Note Date: 07/20/23 Patient seen and examined around 9 AM CHIEF COMPLAINT: Diverticulitis with colovesical fistula HISTORY OF PRESENT ILLNESS: Patient is postop day #3 status post sigmoid colectomy with low anterior resection, takedown of splenic flexure and repair of colovesical fistula. Patient has a bedside sitter. He has been agitated during the night. He had 2 episodes of vomiting. 1 emesis this morning. No bowel movements reported. Patient with Lema catheter in place. Afebrile. WBC 18 down to 11.6 PHYSICAL EXAM: VITAL SIGNS: Reviewed. GENERAL: Well-developed in no acute distress. ABDOMEN: Soft. Nondistended. Nontender. NEUROLOGIC: Sleeping comfortably ASSESSMENT: 1. Diverticulitis with colovesical fistula PLAN: -Downgrade diet to n.p.o. due to the vomiting -Continue IV fluids -Continue antibiotics -Continue Zofran as needed -Continue pain management -Continue Entereg -Consult PT OT to help increase activity level -Repeat labs in a.m. -GI prophylaxis Pepcid and DVT prophylaxis subcu heparin Physician Supervisor [employer] note has been reviewed by physician. Signing provider agrees with the documented findings, assessment, and plan of care. Objective - Vital Signs Vital signs: Vital Signs Temp 98.9 F 07/20/23 07:49 Pulse 70 07/20/23 07:49 Resp 18 07/20/23 07:49 BP 175/94 07/20/23 07:49 Pulse Ox 94 L 07/20/23 07:49 FiO2 Intake & Output 07/19/23 07/20/23 07/20/23 18:59 06:59 18:59 Intake Total 700 Output Total 1240 Balance -1240 700 Intake: Oral 700 Output: Urine 1240 Other: Voiding Method Indwelling Catheter Indwelling Catheter Indwelling Catheter # Voids 2 - Labs CBC & Chem 7: 07/20/23 09:12 07/20/23 09:12 Labs: Abnormal Lab Results - Last 24 Hours (Table) 07/20/23 07/20/23 Range/Units 09:12 09:12 WBC 11.6 H (3.8-10.6) k/uL RBC 4.11 L (4.30-5.90) m/uL Hgb 12.8 L (13.0-17.5) gm/dL Hct 37.6 L (39.0-53.0) % Neutrophils # 9.8 H (1.3-7.7) k/uL Glucose 112 H (74-99) mg/dL Calcium 8.1 L (8.4-10.2) mg/dL
--- NOTE | 2023-07-20 19:13 | P.PN ---
Subjective Progress Note Date: 07/20/23 Principal diagnosis: diverticulosis with colovesicular fistula postop day #3 Patient is awake alert not oriented agitated during the night one episode of vomiting this morning no bowel movements as of now, Lema catheter in place patient is afebrile Objective - Vital Signs Vital signs: Vital Signs Temp 98.6 F 07/20/23 14:00 Pulse 70 07/20/23 14:00 Resp 18 07/20/23 14:00 BP 142/91 07/20/23 16:12 Pulse Ox 99 07/20/23 14:00 FiO2 Intake & Output 07/20/23 07/20/23 07/21/23 06:59 18:59 06:59 Intake Total 700 Output Total 375 Balance 700 -375 Intake: Oral 700 Output: Urine 375 Other: Voiding Method Indwelling Catheter Indwelling Catheter # Voids 2 # Bowel Movements 1 - Exam General: [Patient awake, alert and oriented times 3. Patient in no acute distress.] HEENT: [PERRL. EOMI. No pharyngeal erythema or exudate.] Neck: [No adenopathy.] Cardiac: [Heart regular in rate and rhythm. No S3. No S4. No clicks, rubs. No murmur.] Lungs: [Clear to auscultation bilaterally.] Abdomen: [No mass. No organomegaly. Bowel sounds presnt , abdomen not distended incision clean and dry Extremes: [No edema no cyanosis no claudication normal pulses] : normal male genitalia Musculoskeletal: [No joint erythema, edema or tenderness.] Skin: [No rash.] Neurologic: [No lateralizing deficits. CN II - XII grossly intact.] Lymphatic: [No adenopathy.] - Labs CBC & Chem 7: 07/20/23 09:12 07/20/23 09:12 Labs: Abnormal Lab Results - Last 24 Hours (Table) 07/20/23 07/20/23 Range/Units 09:12 09:12 WBC 11.6 H (3.8-10.6) k/uL RBC 4.11 L (4.30-5.90) m/uL Hgb 12.8 L (13.0-17.5) gm/dL Hct 37.6 L (39.0-53.0) % Neutrophils # 9.8 H (1.3-7.7) k/uL Glucose 112 H (74-99) mg/dL Calcium 8.1 L (8.4-10.2) mg/dL Assessment and Plan (1) Dementia Current Visit: Yes Status: Acute Code(s): F03.90 - UNSP DEMENTIA, UNSP SEVERITY, WITHOUT BEH/PSYCH/MOOD/ANX SNOMED Code(s): 20318923 (2) Colovesical fistula Current Visit: Yes Status: Acute Code(s): N32.1 - VESICOINTESTINAL FISTULA SNOMED Code(s): 46030038 Plan: postop sigmoid colectomy with low anterior resection Patient is hemodynamically stable Early dementia requiring sitter WBC down from 18-11.6 Patient currently nothing by mouth per surgery secondary to nausea and vomiting Continue IV fluids Continue IV antibiotics Antiemetics Zofran as needed Pain meds as needed Time with Patient: Greater than 30
--- NOTE | 2023-07-21 07:50 | XR ---
EXAMINATION TYPE: XR abdomen 2V DATE OF EXAM: 07/21/2023 COMPARISON: 11/03/2021 HISTORY: Vomiting TECHNIQUE: One view abdominal series FINDINGS: The osseous structures are intact. The bowel gas pattern is nonspecific. Basilar atelectasis or infi ltrate.. Surgical neal noted. Bilateral hip arthropathy. Gastric bubbles are not distended. Hyper trophic changes of the SI joints. Degenerative changes lumbar spine. IMPRESSION: 1. Nonspecific abdomen. The gastric bubble is distended. 2. Basilar atelectasis or infiltrate.
[2023-07-21 08:36] LABS: Basophils # (A) 0.03 X 10*3/uL (0.00-0.10); Basophils % (A) 0.3 %; Eosinophils # (A) 0.26 X 10*3/uL (0.04-0.35); Eosinophils % (A) 2.8 %; HCT 33.2 % (39.6-50.0); HGB 11.5 g/dL (13.0-17.0); Lymphocytes # (A) 2.01 X 10*3/uL (0.90-5.00); Lymphocytes % (A) 21.6 %; MCH 30.7 pg (27.0-32.0); MCHC 34.6 g/dL (32.0-37.0); MCV 88.8 FL (80.0-97.0); Mean Platelet Volume 9.9 FL (9.5-12.2); Monocytes # (A) 0.51 X 10*3/uL (0.20-1.00); Monocytes % (A) 5.5 %; NRBC Per 100 WBC 0 X 10*3/uL (0.00-0.01); Neutrophils # (A) 6.47 X 10*3/uL (1.80-7.70); Neutrophils % (A) 69.7 %; Platelet Count 259 X 10*3/uL (140-440); RBC 3.74 X 10*6/uL (4.40-5.60); RDW 12.9 % (11.5-14.5); WBC 9.29 X 10*3/uL (4.50-10.00)
[2023-07-21 09:10] LABS: BUN/Creat Ratio 9.25 Ratio (12.00-20.00); Blood Urea Nitrogen 7.4 mg/dL (9.0-27.0); Calcium 7.9 mg/dL (8.7-10.3); Carbon Dioxide 26.1 mmol/L (21.6-31.8); Chloride 105 mmol/L (96-109); Glucose 188 mg/dL (70-110); Potassium 3.7 mmol/L (3.5-5.5); Sodium 138 mmol/L (135-145)
--- NOTE | 2023-07-21 12:19 | P.PN ---
Subjective Progress Note Date: 07/21/23 CHIEF COMPLAINT: Diverticulitis with colovesical fistula HISTORY OF PRESENT ILLNESS: Patient is postop day #4 status post sigmoid colectomy with low anterior resection, takedown of splenic flexure and repair of colovesical fistula. Patient has a bedside sitter. Patient is less confused and agitated. He is having bowel movements. Nausea and vomiting resolved. Abdominal x-ray reports nonspecific abdomen. Gastric bubble is distended. His pain is controlled. Denies any nausea or vomiting. Patient did pull the DACIA drain out a couple nights ago. Afebrile elevated BP. WBC has normalized at 9.2 9 Hgb 11.5 platelets 259 PHYSICAL EXAM: VITAL SIGNS: Reviewed. GENERAL: Well-developed in no acute distress. ABDOMEN: Soft. Nondistended. Prevena wound VAC intact. Mild tenderness at incision site. NEUROLOGIC: less confused ASSESSMENT: 1. Diverticulitis with colovesical fistula PLAN: -Advance diet to full liquids -Discontinue IV fluids -Continue Lema catheter -Continue antibiotics -Consult PT OT to help increase activity level -GI prophylaxis Pepcid and DVT prophylaxis subcu heparin Physician College Archivist note has been reviewed by physician. Signing provider agrees with the documented findings, assessment, and plan of care. Objective - Vital Signs Vital signs: Vital Signs Temp 98.3 F 07/21/23 07:16 Pulse 53 L 07/21/23 07:16 Resp 18 07/21/23 07:16 BP 179/88 07/21/23 07:16 Pulse Ox 97 07/21/23 07:16 FiO2 Intake & Output 07/20/23 07/21/23 07/21/23 18:59 06:59 18:59 Output Total 375 1250 700 Balance -375 -1250 -700 Output: Urine 375 1250 700 Coude 600 Other: Voiding Method Indwelling Catheter Indwelling Catheter # Bowel Movements 1 1 - Labs CBC & Chem 7: 07/21/23 05:39 07/21/23 05:39 Labs: Abnormal Lab Results - Last 24 Hours (Table) 07/21/23 07/21/23 Range/Units 05:39 05:39 RBC 3.74 L (4.40-5.60) X 10*6/uL Hgb 11.5 L (13.0-17.0) g/dL Hct 33.2 L (39.6-50.0) % BUN 7.4 L (9.0-27.0) mg/dL BUN/Creatinine Ratio 9.25 L (12.00-20.00) Ratio Glucose 188 H (70-110) mg/dL Calcium 7.9 L (8.7-10.3) mg/dL
[2023-07-21] MEDS: lisinopriL 5 MG TAB PO SCH (20:21)
[2023-07-21] MEDS: MELATONIN 5 MG TABLET PO PRN (20:21)
[2023-07-22] MEDS: lisinopriL 5 MG TAB PO ONE (00:20)
[2023-07-22] MEDS: lisinopriL 10 MG TAB PO SCH (08:16)
[2023-07-22 08:57] LABS: HCT 35.9 % (39.6-50.0); HGB 12.4 g/dL (13.0-17.0); MCH 31.2 pg (27.0-32.0); MCHC 34.5 g/dL (32.0-37.0); MCV 90.2 FL (80.0-97.0); Mean Platelet Volume 10.1 FL (9.5-12.2); NRBC Per 100 WBC 0 X 10*3/uL (0.00-0.01); Platelet Count 295 X 10*3/uL (140-440); RBC 3.98 X 10*6/uL (4.40-5.60); RDW 12.8 % (11.5-14.5)
[2023-07-22 09:12] LABS: BUN/Creat Ratio 6.75 Ratio (12.00-20.00); Blood Urea Nitrogen 5.4 mg/dL (9.0-27.0); Calcium 8.4 mg/dL (8.7-10.3); Chloride 103 mmol/L (96-109); Glucose 95 mg/dL (70-110); Potassium 3.8 mmol/L (3.5-5.5); Sodium 141 mmol/L (135-145)
[2023-07-22 09:52] VITALS: BP 171/102; PULSE 49; RESP 18; TEMP 98.4
--- NOTE | 2023-07-22 14:20 | P.DS ---
Providers Date of admission: 07/17/23 06:11 Expected date of discharge: 07/22/23 Attending physician: Darinel Richard Consults: 07/17/23 10:51 Consult Physician Routine Consulting Provider: Jose Flores Consult Reason/Comments: history of colovesical fistula, bladder repair Do you want consulting provider notified?: Yes 07/17/23 10:55 Consult Physician Routine Consulting Provider: Omer Collado Jr Consult Reason/Comments: medical management Do you want consulting provider notified?: Yes Primary care physician: Omer Collado Hospital Course: Discharge diagnosis 1. Diverticulitis with colovesical fistula 2. History of dementia Hospital course This is a 67-year-old male with history of diverticulitis with colovesical fistula. Status post sigmoid colectomy with low anterior resection, takedown of splenic flexure and repair of colovesical fistula. Patient is tolerating diet. He is having bowel movements. He is afebrile. His pain is controlled. He has been up and ambulating. He is stable for discharge. Please refer to chart for any further details. Physician Ecommerce Project Manager note has been reviewed by physician. Signing provider agrees with the documented findings, assessment, and plan of care. Patient Condition at Discharge: Stable Plan - Discharge Summary Discharge Rx Participant: No New Discharge Prescriptions: New Levofloxacin [Levaquin] 500 mg PO DAILY 7 Days #7 tab Acetaminophen Tab [Tylenol] 1,000 mg PO Q6HR PRN #30 tablet PRN Reason: Pain Ibuprofen [Motrin] 600 mg PO Q8HR PRN #30 tab PRN Reason: Pain Continue Donepezil [Aricept] 2 tab PO HS Atorvastatin [Lipitor] 20 mg PO QAM Memantine [Namenda] 10 mg PO BID Discharge Medication List Atorvastatin [Lipitor] 20 mg PO QAM 07/15/23 [History] Donepezil [Aricept] 2 tab PO HS 07/15/23 [History] Memantine [Namenda] 10 mg PO BID 07/15/23 [History] Acetaminophen Tab [Tylenol] 1,000 mg PO Q6HR PRN #30 tablet 07/22/23 [Rx] Ibuprofen [Motrin] 600 mg PO Q8HR PRN #30 tab 07/22/23 [Rx] Levofloxacin [Levaquin] 500 mg PO DAILY 7 Days #7 tab 07/22/23 [Rx] Follow up Appointment(s)/Referral(s): Jose Flores MD [STAFF PHYSICIAN] - 1 Week [facility], [NON-STAFF] - As Needed ([facility] will call you to schedule your in home nursing and physical therapy visits. ) Darinel Richard MD [STAFF PHYSICIAN] - 1 Week Activity/Diet/Wound Care/Special Instructions: No lifting over 10 pounds Shower daily. No soaking or tub baths for 2 weeks Very light activity until you are reevaluated at your follow up appointment with your surgeon Keep Lema catheter in place for 10 days Discharge Disposition: HOME WITH HOME HEALTH SERVICES
[2023-07-22] MEDS: amLODIPine 5 MG TAB PO SCH (14:33)
--- NOTE | 2023-07-22 14:45 | P.PN ---
Subjective Principal diagnosis: diverticulosis with colovesicular fistula postop day #3 Patient is awake alert not oriented agitated during the night one episode of vomiting this morning no bowel movements as of now, Lema catheter in place pat ient is afebrile 07/22/2023 Patient awake oriented blood pressure slightly elevated we'll send patient home on lisinopril 10 mg 1 by mouth daily and amlodipine 5 mg by mouth daily Objective - Vital Signs Vital signs: Vital Signs Temp 98.4 F 07/22/23 08:04 Pulse 49 L 07/22/23 08:04 Resp 18 07/22/23 08:04 BP 171/102 07/22/23 08:04 Pulse Ox 99 07/22/23 09:00 FiO2 Intake & Output 07/21/23 07/22/23 07/22/23 18:59 06:59 18:59 Output Total 1400 1000 590 Balance -1400 -1000 -590 Output: Urine 1400 1000 590 Coude 1000 Other: Voiding Method Indwelling Catheter Indwelling Catheter Indwelling Catheter # Bowel Movements 1 1 - Exam General: [Patient awake, alert and oriented times 3. Patient in no acute distress.] HEENT: [PERRL. EOMI. No pharyngeal erythema or exudate.] Neck: [No adenopathy.] Cardiac: [Heart regular in rate and rhythm. No S3. No S4. No clicks, rubs. No murmur.] Lungs: [Clear to auscultation bilaterally.] Abdomen: [No mass. No organomegaly. Bowel sounds presnt , abdomen not distended incision clean and dry Extremes: [No edema no cyanosis no claudication normal pulses] : normal male genitalia Musculoskeletal: [No joint erythema, edema or tenderness.] Skin: [No rash.] Neurologic: [No lateralizing deficits. CN II - XII grossly intact.] Lymphatic: [No adenopathy.] - Labs CBC & Chem 7: 07/22/23 05:18 07/22/23 05:18 Labs: Abnormal Lab Results - Last 24 Hours (Table) 07/22/23 07/22/23 Range/Units 05:18 05:18 WBC 10.50 H (4.50-10.00) X 10*3/uL RBC 3.98 L (4.40-5.60) X 10*6/uL Hgb 12.4 L (13.0-17.0) g/dL Hct 35.9 L (39.6-50.0) % Anion Gap 13.00 H (4.00-12.00) mmol/L BUN 5.4 L (9.0-27.0) mg/dL BUN/Creatinine Ratio 6.75 L (12.00-20.00) Ratio Calcium 8.4 L (8.7-10.3) mg/dL Assessment and Plan (1) Dementia Current Visit: Yes Status: Acute Code(s): F03.90 - UNSP DEMENTIA, UNSP SEVERITY, WITHOUT BEH/PSYCH/MOOD/ANX SNOMED Code(s): 12699877 (2) Colovesical fistula Current Visit: Yes Status: Acute Code(s): N32.1 - VESICOINTESTINAL FISTULA SNOMED Code(s): 72883347 Plan: postop sigmoid colectomy with low anterior resection Patient is hemodynamically stable blood pressure elevated patient started on lisinopril 10 mg 1 by mouth daily Started on Norvasc 5 mg 1 by mouth daily Will evaluate in the office in 3 days Time with Patient: Greater than 30
== END 2023-07-22 17:11 | disposition home health service (06) | DRG 330 ==
LOC: 2ORMAIN 06:11 → 4SSUR 12:03
PROVIDERS: ADMIT Surgery; ATTEND Surgery
PROC: 2W13X6Z Compression of Abdominal Wall using Pressure Dressing (ICD-10-PCS; 2023-07-17)
PROC: 0DTN0ZZ Resection of Sigmoid Colon, Open Approach (ICD-10-PCS; principal; 2023-07-17 08:10)
DX: K57.32 Diverticulitis of large intestine without perforation or abscess without bleeding (principal); F03.911 Unspecified dementia, unspecified severity, with agitation; N32.1 Vesicointestinal fistula; E78.5 Hyperlipidemia, unspecified; Z79.899 Other long term (current) drug therapy; Z87.440 Personal history of urinary (tract) infections; Z87.891 Personal history of nicotine dependence
CPT/HCPCS: 74019; 80048; 80053; 85025; 85027; 86850; 86900; 86901; 88305; 88307; 94760